=== PATIENT | female | born 1935 | race Caucasian/White ===

== ENCOUNTER 2023-12-30 19:41 | Emergency (ER) | payer OTHER, SELFPAY ==
[2023-12-30 19:42] VITALS: BP 191/96; BMI 23.1
[2023-12-30 19:43] VITALS: BP 191/96
[2023-12-30 20:00] VITALS: BP 173/86
[2023-12-30 20:06] LABS: % Basophils 0.8 % (0-2); % Eosinophils 2.2 % (0-6); % Immature Granulocytes 0.2 % (0-0.5); % Lymphocytes 37.9 % (20.5-51.1); % Monocytes 10.6 % (1.7-9.3); % Neutrophils 48.3 % (42.2-75.2); Absolute Basophils 0.1 10^3/uL (0-0.2); Absolute Eosinophils 0.1 10^3/uL (0-0.7); Absolute Lymphocytes 2.4 10^3/uL (1.2-3.4); Absolute Monocytes 0.7 10^3/uL (0.1-0.6); Hematocrit 41.4 % (37.0-47.0); Hemoglobin 14.1 g/dL (12.0-16.0); Mean Corp Hgb Conc. 34.1 g/dL (33.0-37.0); Mean Corpuscular Volume 88.1 fL (81.0-99.0); Mean Platelet Volume 9.4 fL (7.4-10.4); Nucleated Red Blood Cells % 0 %; Platelet Count 296 10^3/uL (130-400); Red Cell Dist. Width 13.4 % (11.5-14.5); White Blood Cell Count 6.2 10^3/uL (4.8-10.8)
[2023-12-30 20:21] LABS: COVID-19 Antigen Negative (Negative)
--- NOTE | 2023-12-30 20:35 | ED.GENMED ---
History of Present Illness
General
Chief Complaint: Fatigue
Source: patient
Time Seen by Provider: 12/30/23 20:29
History of Present Illness
History of Present Illness:
88-year-old female presents emergency room for evaluation of generalized malaise, abdominal pain. Patient lives with her daughter currently. She moved over the daughter about a year ago after a hospital admission for urinary tract infection.
Patient is not very active but today seemed more tired lack of energy than normal. No known fever. No significant cough. No nausea or vomiting.
Phy Exam
Physical Exam
Physical Exam:
General: Awake, Alert, Oriented X2. No acute distress.
Vitals: unremarkable
Head: Atraumatic
Eyes: Pupils equal, EOMI
Throat: Airway intact, no exudates, dry mucous
Neck: Trachea midline
Lungs: Clear and equal b/l
Heart: Regular rate, no murmurs
Abd: Soft, Nontender, No pulsatile mass
Back: No CVA tenderness to percussion
Neuro: Nonfocal
Skin: Warm, dry, no rash
Extremities: pulses equal b/l, no edema
Course
Orders/Labs/Results
Orders:
Orders
12/30/23 19:44
EKG [Electrocardiogram (*1)] Urgent
Reason for Study: Tachycardia
EKG- Treatment ONCE
12/30/23 19:58
COVID-19 Antigen Urgent
Source: Nasal Swab
Complete Blood Count/With Diff Urgent
Comprehensive Metabolic Panel Urgent
Lipase Urgent
Troponin I Urgent
Influenza A+B Rapid Molecular Urgent
ANASTASIYA Source: Nasal Swab
Specimen Description:
12/30/23 21:17
CT Abd/pelvis W Iv Cont Urgent
Comment:
Reason For Exam: epigastric pain
12/30/23 22:00
Urinalysis Reflex To Culture Urgent
Date Specimen was Collected: 12/30/23
Time Specimen was Collected: 19:44
Urine Microscopic Reflex Cult Urgent
Urine Culture Urgent
ANASTASIYA Source: U
Specimen Description:
Date Specimen was Collected: 12/30/23
Time Specimen was Collected: :44
12/30/23 22:40
Pantoprazole [Protonix] 40 mg PO NOW STA
Abnormal Lab Results
12/30/23 12/30/23
19:58 22:00
Absolute Monos (auto) 0.7 H 10^3/uL
(0.1-0.6)
Monocytes % 10.6 H %
(1.7-9.3)
Potassium 3.4 L mmol/L
(3.5-5.1)
Glucose 126 H mg/dl
(70-99)
Alkaline Phosphatase 136 H U/L
(38-126)
Lipase 459 H U/L
(23-300)
Urine Ketones Trace A
(Negative)
Urine Bilirubin 1+ A
(Negative)
Leukocyte Esterase Rfl 1+ A
(Negative)
Urine RBC 3-6 A /HPF
(0-2)
Urine WBC (Reflex) 21-25 A /HPF
(0-5)
Urine Bacteria (Reflex) Few A
(Negative)
12/30/23 19:58
12/30/23 19:58
Vital Signs
Initial and Last Documented VS:
Initial Vital Signs
Temp Pulse Resp BP Pulse Ox
98.2 F 83 17 191/96 94
12/30/23 19:42 12/30/23 19:42 12/30/23 19:42 12/30/23 19:42 12/30/23 19:42
Last Documented Vital Signs
Temp Pulse Resp BP Pulse Ox
98.2 F 69 22 186/94 91
12/30/23 19:42 12/30/23 22:15 12/30/23 22:15 12/30/23 22:30 12/30/23 22:15
MDM/Problems Addressed
Differential Diagnosis Includes:
Gastritis, pancreatitis, cholecystitis
MDM/Problems Addressed:
Patient's labs are reassuring other than a mildly elevated lipase. CT was obtained which does not show any evidence for pancreatic inflammation. Patient appears quite comfortable on reevaluation. Doubt pancreatitis. Suspect gastritis which the
CAT scan did show some evidence of. Patient stable for discharge home. Suspect urine is contaminated. Would not treat because the patient is not having significant dysuria. Will see what culture grows.
*Radiology
Radiology exam reviewed: radiology read reviewed
*Pulse Oximetry
Patient hypoxic: no
*EKG
Interpreted by ED Provider?: Yes
Heart Rate: 79
Rate: normal
Rhythm: sinus
Shingleton: normal axis
Interval: normal interval
QRS Pattern: normal QRS
Ischemia: no ischemia
*Reimbursement Counselor Interpretation
Rate: normal
Interpretation: normal
Rhythm: sinus
*Critical Care Note
Total Time (30-74mins, 75-104mins- exclusive of procedures): Not Applicable
ED Attending Note
-
Portions of this chart may have been created with voice recognition software.� Occasional wrong word or��sound alike� substitutions may have occurred due to the inherent limitations of voice recognition software.
Discharge Plan
Departure
Patient Disposition: Home (Routine Discharge)
Date of Disposition: 12/30/23
Time of Disposition: 22:39
Patient with high blood pressure during this ER visit?: Yes
Condition: Good
Discharge Problem:
Abdominal pain, Gastritis
Instructions: Gastritis ED, BLOOD PRESSURE
Prescriptions:
New
pantoprazole [Protonix] 40 mg tablet,delayed release (DR/EC)
40 mg PO DAILY Qty: 30 0RF
Referrals:
Laura Brewster MD [Active] -
Joseph Chun MD [Family Provider] -
Activity Restrictions/Additional Instructions:
Please follow-up with your family doctor. Call tomorrow to make an appointment. I have sent a prescription for Protonix which she should take 1 pill a day. I have also provided contact information for gastroenterology who should call tomorrow to
make an appointment with
Interventions
Interventions:
*Risk Screen - Suicide Last Done: 12/30/23 19:42
*General Assessment Last Done: 12/30/23 19:42
*Neglect/Abuse Screening Last Done: 12/30/23 19:42
ED- Fall Risk Assessment Last Done: 12/30/23 19:42
*ED COVID-19 Vaccine History Last Done: 12/30/23 19:42
*Nursing Disposition Last Done: 12/30/23 23:22
Discharge Date and Time
Discharge Date/Time: 12/30/23 23:23
Print Language: TURKISH
[2023-12-30 20:36] LABS: ALT (SGPT) 12 U/L (0-35); AST (SGOT) 21 U/L (14-36); Albumin 3.8 g/dl (3.5-5.0); Alkaline Phosphatase 136 U/L (38-126); Blood Urea Nitrogen 12 mg/dl (7-17); Calcium 9.6 mg/dl (8.4-10.2); Carbon Dioxide 30 mmol/L (22-30); Chloride 103 mmol/L (98-107); Estimated Creatinine Clearance 39 ml/min; Glucose 126 mg/dl (70-99); Lipase 459 U/L (23-300); Potassium 3.4 mmol/L (3.5-5.1); Sodium 142 mmol/L (135-145); Total Bilirubin 0.4 mg/dl (0.2-1.3); Total Protein 6.4 g/dl (6.3-8.2); eGFR > 60.00
[2023-12-30 20:48] LABS: Troponin I < 0.012 ng/ml
[2023-12-30 21:00] VITALS: BP 182/90
[2023-12-30 22:01] VITALS: BP 209/99
[2023-12-30 22:22] LABS: Urine Albumin Trace (Neg - Trace); Urine Bilirubin 1+ (Negative); Urine Character Slightly Cloudy (Clear); Urine Color Amber; Urine Glucose Negative (Negative); Urine Ketone Trace (Negative); Urine Leukocyte 1+ (Negative); Urine Nitrite Negative (Negative); Urine Occult Blood Negative (Negative); Urine Specific Gravity 1.025 (<1.030); Urine Urobilinogen 1+ (Neg - 1+)
[2023-12-30 22:30] VITALS: BP 186/94
[2023-12-30] MEDS: PROTONIX 40 MG PO (22:43)
[2023-12-30 22:57] LABS: Urine Bacteria Few (Negative); Urine Calcium Oxalate Crystals Present; Urine White Cell 21-25 /HPF (0-5)
== END 2023-12-30 23:23 | disposition home or self-care (01) ==
LOC: EMR 19:41
PROVIDERS: EMERGENCY PHYSICIAN Emergency Medicine; FAMILY PHYSICIAN Internal Medicine
DX: R10.9 Unspecified abdominal pain (principal); R53.81 Other malaise; R07.89 Other chest pain; K29.00 Acute gastritis without bleeding; Z11.52 Encounter for screening for COVID-19; R74.8 Abnormal levels of other serum enzymes; R03.0 Elevated blood-pressure reading, without diagnosis of hypertension; E78.5 Hyperlipidemia, unspecified; Z91.048 Other nonmedicinal substance allergy status
CPT/HCPCS: 99285; 74177; 80053; 81003; 81015; 83690; 84484; 85025; 87086; 87502; 87811; 93005; Q9967